=== PATIENT | female | born 1980 | race Caucasian/White ===

== ENCOUNTER 2017-06-28 17:06 | Emergency (ER) | payer OTHER ==
[~2017-06-28] VITALS: Ht 180.3 cm; Wt 74.8 kg
[2017-06-28] MEDS ORDERED: ALBU18HF2 IH (17:41)
--- NOTE | 2017-06-28 19:03 | NUR ---
PATIENT STATES SHE FELL AND HURT HER "TAILBONE".
--- NOTE | 2017-06-28 19:20 | NUR ---
REPORT TAKEN FROM ANTHONY PINEDA. ASSUMING PT CARE AT THIS TIME.
--- NOTE | 2017-06-28 20:04 | NUR ---
PT SITTING UP IN BED, TALKING TO FRIEND. DENIES PAIN AT THIS TIME. NO SIGNS OF DISTRESS NOTED.
--- NOTE | 2017-06-28 21:11 | NUR ---
Patient discharged to home in stable conditon. Written and verbal after care instructions given. Patient verbalizes understanding of instructions. Pt ambulated from ER w/ steady gait, accompanied by friend. Denies pain at time of discharge. No distress noted.
[2017-06-28 21:12] VITALS: BP 116/68
== END 2017-06-28 21:13 | disposition home or self-care (01) ==
LOC: ER 17:06
DX: S32.10XA Unspecified fracture of sacrum, initial encounter for closed fracture (principal); Z88.8 Allergy status to other drugs, medicaments and biological substances; Z79.899 Other long term (current) drug therapy; X58.XXXA Exposure to other specified factors, initial encounter; Y93.89 Activity, other specified; Y92.89 Other specified places as the place of occurrence of the external cause; Y99.8 Other external cause status
CPT/HCPCS: 72220; A4663

== ENCOUNTER 2017-09-12 23:43 | Emergency (ER) | payer OTHER ==
[~2017-09-12] VITALS: Ht 180.3 cm; Wt 72.6 kg
[~2017-09-12 23:43] MED LIST: ALBU18HF2 IH
--- NOTE | 2017-09-13 00:15 | NUR ---
Pt ambulated to ER with steady gait, accompanied by , c/o skin rash all over the body. Reports to have eaten food the day before and tried some essential oil. States skin rash itchy sometimes, denies difficulty breathing or shortness of breath.
--- NOTE | 2017-09-13 00:28 | NUR ---
Dr. Borjas at bedside for MSE.
[2017-09-13] MEDS ORDERED: predniSONE 50 MG TABLET PO ONE (00:45)
[2017-09-13] MEDS ORDERED: predniSONE 50 MG TABLET ONE (00:50)
--- NOTE | 2017-09-13 00:53 | NUR ---
Patient discharged to home in stable conditon. Written and verbal after care instructions given. Patient verbalizes understanding of instructions. Patient ambulated out of ER with steady gait, no acute signs of distress, VSS, all belongings taken.
[2017-09-13 01:00] VITALS: BP 111/70
== END 2017-09-13 01:01 | disposition home or self-care (01) ==
LOC: ER 23:47
DX: L27.1 Localized skin eruption due to drugs and medicaments taken internally (principal); Z88.8 Allergy status to other drugs, medicaments and biological substances; Z79.899 Other long term (current) drug therapy
CPT/HCPCS: 99283; A4663; J7512

== ENCOUNTER 2019-01-21 13:16 | Emergency (ER) | payer OTHER ==
[~2019-01-21] VITALS: Ht 180.3 cm; Wt 77.1 kg
--- NOTE | 2019-01-21 13:38 | NUR ---
RT notified for stat [facility] [place].
[2019-01-21] MEDS ORDERED: predniSONE 50 MG TABLET ONE (13:41)
[2019-01-21] MEDS ORDERED: predniSONE 10 MG TABLET ONE (13:41)
[2019-01-21] MEDS ORDERED: ALBUTEROL SULFATE 2.5 MG/3 ML NEBU NEB ONE ×2 (13:45→15:45)
[2019-01-21] MEDS ORDERED: predniSONE 10 MG TABLET PO ONE (13:45)
[2019-01-21] MEDS ORDERED: ALBUTEROL SULFATE 2.5 MG/3 ML NEBU ONE ×2 (14:01→15:49)
--- NOTE | 2019-01-21 17:00 | NUR ---
Patient discharged to home in stable conditon. Written and verbal after care instructions given. Patient verbalizes understanding of instructions.PT WALKS I NSTEADY GAIT, PT SAYS FEELS BETTER. PT ACCOMPANIED BY SO.
[2019-01-21 17:03] VITALS: BP 114/81
== END 2019-01-21 17:03 | disposition home or self-care (01) ==
LOC: ER 13:16
DX: J45.901 Unspecified asthma with (acute) exacerbation (principal); J20.9 Acute bronchitis, unspecified; Z88.8 Allergy status to other drugs, medicaments and biological substances; Z79.899 Other long term (current) drug therapy
CPT/HCPCS: 71045; 94644; 94645; 99285; J7512 ×2; A4663

== ENCOUNTER 2021-10-15 20:35 | Emergency (ER) | payer SELFPAY ==
--- NOTE | 2021-10-15 22:52 | NUR ---
Pt not in waiting room.
== END 2021-10-15 22:56 | disposition left against medical advice (07) ==
LOC: ER 20:35
DX: Z53.21 Procedure and treatment not carried out due to patient leaving prior to being seen by health care provider (principal)